=== PATIENT | male | born 1955 | race Hispanic/Latino ===

== ENCOUNTER → 2025-02-19 | Outpatient (CLI) | payer OTHER ==
[2025-02-19 22:15] VITALS: PULSE 79; RESP 12
[2025-02-19 22:32] VITALS: PULSE 83; RESP 18
[2025-02-19 23:00] VITALS: PULSE 92; RESP 20
[2025-02-19 23:31] VITALS: PULSE 87; RESP 18
[2025-02-20] VITALS (12 sets, daily range): PULSE 82–95; RESP 12–18
== END | disposition home or self-care (01) ==
LOC: SLP 20:39
PROVIDERS: ATTEND Internal Medicine
DX: G47.33 Obstructive sleep apnea (adult) (pediatric) (principal)
CPT/HCPCS: 95810

== ENCOUNTER → 2025-02-23 | Outpatient (CLI) | payer OTHER ==
[2025-02-23 21:35] VITALS: PULSE 92; RESP 18
[2025-02-23 22:30] VITALS: PULSE 64; RESP 18
[2025-02-23 23:00] VITALS: PULSE 88; RESP 18
[2025-02-23 23:30] VITALS: PULSE 86; RESP 12
[2025-02-24] VITALS (10 sets, daily range): PULSE 72–90; RESP 14–20
== END | disposition home or self-care (01) ==
LOC: SLP 20:10 → EDUNIT# 02-26 20:30
PROVIDERS: ATTEND Internal Medicine
DX: G47.33 Obstructive sleep apnea (adult) (pediatric) (principal)
CPT/HCPCS: 95811